=== PATIENT | male | born 1990 | race Caucasian/White ===

== ENCOUNTER 2017-09-22 19:12 | Emergency (ER) | payer OTHER ==
[~2017-09-22] VITALS: Ht 182.9 cm; Wt 64.7 kg
[~2017-09-22 19:12] MED LIST: MS CONTIN100 MG PO; OXYCODONE30 MG PO; OXYCONTIN80 MG PO
[2017-09-22 21:39] LABS: HEMATOCRIT 46.4 % (38.0-50.0); HEMOGLOBIN 16.6 G/DL (12.5-16.6); MCHC 35.8 G/DL (30.0-36.0); MCV 100.7 FL (86-99); PLATELET COUNT 167 K/uL (156-360); RBC DIS.WIDTH-CV 11.8 % (11.8-14.6); RBC DIS.WIDTH-SD 43.6 % (39-53); RED BLOOD COUNT 4.61 M/uL (4.00-5.50); WHITE BLOOD COUNT 12.3 K/uL (4.1-10.2)
[2017-09-22 21:48] LABS: CHLORIDE 97 mEq/L (99-109); POTASSIUM 4.2 mEq/L (3.7-5.4); SODIUM 134 mEq/L (136-147)
[2017-09-22 21:50] LABS: GLUCOSE 80 mg/dL (70-99)
[2017-09-22 21:53] LABS: CREATININE 0.8 mg/dL (0.6-1.3); GFR ESTIMATE (CALCULATED) > 59 mL/min/ (58.99-99999)
[2017-09-22 21:54] LABS: UREA NITROGEN (BUN) 11 mg/dL (9-23)
[2017-09-22 22:01] VITALS: BP 110/92
== END 2017-09-22 22:04 | disposition home or self-care (01) ==
LOC: EME → EDBD 19:12 → EME 22:04
PROVIDERS: Emergency Medicine
DX: R55 Syncope and collapse (principal); F32.9 Major depressive disorder, single episode, unspecified; Z86.73 Personal history of transient ischemic attack (TIA), and cerebral infarction without residual deficits
CPT/HCPCS: 80048; 85027; 93005; 99281; 99284